=== PATIENT | male | born 1995 | race African-American/Black ===

== ENCOUNTER 2023-07-14 14:26 | Outpatient (CLI) | payer OTHER, SELFPAY ==
--- NOTE | ~2023-07-14 | XR_ITS ---
EXAMINATION: XR shoulder RT min 2V DATE: 07/14/2023 15:24 INDICATION: Right shoulder pain TECHNIQUE: AP internally and externally rotated, AP oblique externally rotated and transscapular Y vi ews of the right shoulder were obtained. COMPARISON: None FINDINGS: Normal alignment. No fracture. Glenohumeral joint is normal. Acromioclavicular joint is normal. Soft tissues are unremarkable. Visualized portion of the lungs are clear. IMPRESSION: Negative right shoulder radiographs. Reviewed, dictated and finalized at location A.
--- NOTE | ~2023-07-14 | XR_ITS ---
EXAMINATION: XR thoracic spine 3V DATE: 07/14/2023 15:24 INDICATION: Right shoulder and upper left-sided back pain TECHNIQUE: One AP, lateral and lateral swimmer's views of the thoracic spine were obtained. COMPARISON: Chest radiograph dated 03/12/2015 FINDINGS: Alignment is normal. Vertebral body heights are normal. Mild disc height loss at a few of the mid tho racic levels. Prominent elevation of left hemidiaphragm unchanged since 03/12/2015. Visualized lungs a re clear. No pleural effusion or pneumothorax. IMPRESSION: 1. Minimal midthoracic spondylosis. 2. Prominent chronic elevation the left hemidiaphragm. Reviewed, dictated and finalized at location A.
== END 2023-07-14 14:27 | disposition home or self-care (01) ==
PROVIDERS: PCP Emergency Medicine; Visit Provider Emergency Medicine
DX: M25.511 Pain in right shoulder (principal); M47.894 Other spondylosis, thoracic region
CPT/HCPCS: 72072; 73030